=== PATIENT | female | born 1970 | race Caucasian/White ===

== ENCOUNTER 2022-05-12 15:17 | Outpatient (CLI) | payer OTHER, SELFPAY ==
[2022-05-12 17:25] LABS: Carcinoembryonic Antigen 0.8 ng/mL (0.0-3.0)
[2022-05-15 07:36] LABS: CA 19-9 28 U/mL (<34)
== END 2022-05-12 15:18 | disposition home or self-care (01) ==
PROVIDERS: PCP Internal Medicine; Visit Provider Obstetrics & Gynecology
DX: N83.209 Unspecified ovarian cyst, unspecified side (principal)
CPT/HCPCS: 36415; 82378; 86301

== ENCOUNTER 2022-05-13 01:37 | Day surgery (SDC) | payer OTHER, SELFPAY ==
[2022-05-12 17:09] VITALS: BMI 37.6
--- NOTE | 2022-05-12 17:36 | SUR.PREOP ---
Report to the Outpatient Waiting Room, entrance under the green pavilion located off [facility], at time 1130 on date 05/13/2022. OR Time: 1330. Time changes happen often and if your time is changed the preop area will call you the afternoon before. - You and your visitor will be asked to self-screen and do not enter if you have any COVID symptoms. - Only one visitor and NO children visitors are allowed at this time. - The patient visitor is requested to leave or wait in car when not with patient due to restrictions. - A mask is required within the hospital. Patients may have clear liquids (water, carbonated beverages, clear teas, apple juice) until 3 hours (1030) prior to surgery with a maximum of 20 ounces. - No food from midnight until time of surgery - Infants may have breast milk until 4 hours before surgery, infant formula 6 hours prior to surgery. - Children will be allowed to drink immediately following surgery. If applicable, please bring a bottle or sippy cup to assist with drinking. Juice, water, soda, and popsicles are readily available. For infants on formula, please bring formula the day of surgery. Pacifiers are allowed. Take the following medications with a SIP of water the morning of surgery: Tylenol or Tramadol as needed for pain Medications to discontinue per physician N/A Date to take last dose N/A Please no make-up, nail hungarian, hairspray, perfume, deodorant, or body powder the day of surgery. No jewelry (including any body piercings) or valuables the day of surgery, leave them at home. Please take a shower or bath the night before, or the morning of, surgery with an antibacterial soap. Wear comfortable, loose fitting clothing. Children are encouraged to wear pajamas. - Jewelry must be removed prior to entering the operating room. Rings and piercings that are not removed may be cut off. - The hospital will not accept responsibility for valuables. - Please leave all valuables, including medications, at home the day of surgery. If you are going home after surgery, a licensed trailer driver must drive you home. - NO public transportation without another adult. - We recommend that an adult stay with you for 24 hours following discharge. - We also recommend that you do not drive, make important decision, drink alcoholic beverages, or take any drugs that were not prescribed by your health care provider for at least 24 hours after your discharge time. For Pediatric surgeries, we recommend two adults accompany the child home (only one inside the building at this time). Follow any additional instructions given to you from your surgeon. If you or anyone in your household have experienced Covid symptoms in the past week, please notify your surgeon or the nurse liaison at the phone number below for possible testing. Telephone instructions given to ____patient and asked if any additional questions and then verbalized understanding. Patient advised to call surgeon office or pre surgery nurse liaison [phone] if any additional questions.
[2022-05-13] VITALS (14 sets, daily range): BP systolic 102–166; BP diastolic 57–79; PULSE 50–78; RESP 12–18; TEMP 36.4–36.6; O2SAT 92–100
--- NOTE | 2022-05-13 08:22 | PM.IMHP ---
H&P: HPI History of Present Illness Date/Time: 05/13/22 08:22 51-year-old female 2 para 2001 presents for evaluation of right adnexal mass and pain. Was doing well until approximately 1 week ago which again have right lower quadrant pain and presented to the emergency to imaging center at [facility]. Was found have 4-6 cm right adnexal mass which was causing significant amount of pain. She then went to emergency room in [facility] which is where her oncologist is located. Was evaluated in the emergency room and discharged home. Continue with severe pain and presents today for evaluation and treatment. We have discussed the possibility cystectomy and/or oophorectomy. Tumor markers have been ordered but patient is having enough discomfort that she does not desire to wait until they return before proceeding with surgical intervention. She also has a known fibroid uterus and has some pelvic cramping with this as well as urinary incontinence but we have deferred an evaluation and treatment of this until a later time as the adnexal pain is significant enough that she needs surgery sooner for these issue. Chief Complaint: Adnexal mass with pain Review of Systems Review of Systems: All systems reviewed & are unremarkable except as noted in HPI and below PMFSH Past Medical History Medical History Abnormal Pap smear of cervix Breast cancer (09/05/10) right breast cancer Ovarian cyst Surgical History Surgical History History of mastectomy Bilateral mastectomy History of tonsillectomy Hx of breast implants, bilateral silicone after double mastectomy / nipple reconstruction Hx of cholecystectomy Social History Social History Smoking status: Never smoker Alcohol intake: current Drinks per week: 6 Substance use: never Substance use type: does not use Living arrangements: with family Additional living arrangements comments: Additional occupation/education comments: Nurse practioner Gender identity (if verbalized by the patient): Female Sexual Orientation (if Verbalized by the Patient): Straight or Heterosexual Spiritual care concerns: No Meds Home Medications and Allergies Home Medications Medication Instructions Recorded Confirmed Type acetaminophen 500 mg tablet 1,000 mg PO Q6H PRN Pain 09/07/22 09/07/22 History (Tylenol Extra Strength) ketorolac 10 mg tablet 10 mg PO Q6H PRN Pain 05/12/22 05/12/22 History omeprazole 40 mg capsule,delayed 40 mg PO DAILY 05/12/22 05/12/22 History release tramadol 50 mg tablet 50 mg PO Q6H PRN pain #20 tabs 05/12/22 05/12/22 Rx Allergies Allergy/AdvReac Type Severity Reaction Status Date / Time erythromycin base Allergy Intermediate Rash Verified 05/12/22 17:07 Penicillins Allergy Intermediate Rash Verified 05/12/22 17:05 Sulfa (Sulfonamide Allergy Intermediate Itching Unverified 05/12/22 17:05 Antibiotics) latex Allergy Mild Rash Verified 05/12/22 17:05 Exam Const: General: cooperative and healthy appearing Resp: Effort & Inspection: normal respiratory effort Auscultation: clear to auscultation bilaterally Cardio: Rate: regular rate Rhythm: regular rhythm GI: Inspection: normal to inspection Auscultation: normal bowel sounds : External Female Exam: normal external appearance Speculum Exam - Vagina: normal appearance of the vagina Speculum Exam - Cervix: normal appearance of the cervix Bimanual exam- vagina & uterus: enlarged (12 to 14 week size and globular/tender) Assessment and Plan Assessment and plan (1) Adnexal mass: Code(s): N94.89 - Other specified conditions associated with female genital organs and menstrual cycle Status: Acute Assessment and Plan: Proceed with laparoscopic evaluation with ovarian cystectomy. Possible oo
--- NOTE | 2022-05-13 08:27 | WPDHPUPDATE1 ---
History and Physical Update Update Date/Time: 05/13/22 08:27 History and Physical has been reviewed, including an updated exam of the patient. There are NO changes in the patient's condition. Risks, benefits, and alternatives have been discussed and questions answered. Patient agrees to proceed with procedure.
--- NOTE | 2022-05-13 11:03 | WPDANESEPPF ---
Anes - Initial Pre Proc Eval Procedure: Operation Date: 05/13/22 11:30 Proposed Procedures p Laparoscopic Right Ovarian Cystectomy with Possible Right Oophorectomy - Florencio Khalil MD Date/Time: 05/13/22 11:03 Surgeon: Florencio Khalil MD Pre Op Diagnosis: Right Ovarian Cyst Patient Data Age: 51 Gender: F Height: 1.7 m Weight: 109.3 kg Allergies Allergy/AdvReac Type Severity Reaction Status Date / Time erythromycin base Allergy Intermediate Rash Verified 05/13/22 10:58 Penicillins Allergy Intermediate Rash Verified 05/13/22 10:58 Sulfa (Sulfonamide Allergy Intermediate Itching Unverified 05/13/22 10:58 Antibiotics) latex Allergy Mild Rash Verified 05/13/22 10:58 Home Medications Medication Instructions Recorded Confirmed Type acetaminophen 500 mg tablet 1,000 mg PO Q6H PRN Pain 05/12/22 05/13/22 History (Tylenol Extra Strength) ketorolac 10 mg tablet 10 mg PO Q6H PRN Pain 05/12/22 05/13/22 History omeprazole 40 mg capsule,delayed 40 mg PO DAILY 05/12/22 05/13/22 History release tramadol 50 mg tablet 50 mg PO Q6H PRN pain #20 tabs 05/12/22 05/13/22 Rx Patient hx anesthesia problems: post op nausea/vomiting Family hx anesthesia problems: none Results Review: All pre-operative results and documents have been reviewed as part of the pre-operative evaluation. [facility] Past Medical History Medical History Abnormal Pap smear of cervix Breast cancer (09/05/10) right breast cancer Hx of migraines Ovarian cyst Surgical History Surgical History History of mastectomy Bilateral mastectomy History of tonsillectomy Hx of breast implants, bilateral silicone after double mastectomy / nipple reconstruction Hx of cholecystectomy Social History Social History Smoking status: Never smoker Alcohol intake: current Drinks per week: 6 Substance use: never Substance use type: does not use Living arrangements: with family Additional living arrangements comments: Additional occupation/education comments: Nurse practioner Gender identity (if verbalized by the patient): Female Sexual Orientation (if Verbalized by the Patient): Straight or Heterosexual Spiritual care concerns: No Anes - Eval Final PreProcedure Day of Procedure 05/13/22 11:03 Patient weight: obese Heart: regular rate and rhythm Lungs: clear to auscultation Airway: Mallampati scale class II Neurological: alert and oriented Last oral intake: >/= 8 hours ASA classification: III Emergent: no Anesthetic plan: proceed Anesthesia type and monitoring: general ETT and standard monitoring Results Review: All pre-operative results and documents have been reviewed as part of the pre-operative evaluation. Informed Consent: The patient's anesthetic plan and its attendant risks and benefits were discussed with the patient/family/POA. Questions were solicited and answers provided to the satisfaction of the patient/family/POA.
[2022-05-13] MEDS: KETOROLAC 15 MG/ML VIAL (*BKC) IV PUSH (11:08)
[2022-05-13] MEDS: LACTATED RINGERS 1,000 ML 30 ML IV CONT ×2 (11:08→12:54)
[2022-05-13] MEDS: ONDANSETRON INJ 4 MG/2 ML VIAL IV PUSH (13:09)
[2022-05-13] MEDS: fentaNYL CITRATE INJ (*CRX) 100 MCG/2 ML VIAL 25 MCG IV PUSH ×2 (13:18→13:25)
[2022-05-13] MEDS: diphenhydrAMINE HCl INJ 50 MG/ML VIAL 25 MG IV PUSH (13:25)
--- NOTE | 2022-05-13 13:27 | W.PM.PROC2 ---
Procedure Note - Detailed Date of Procedure 05/13/22 Pre-op Diagnosis Right Ovarian Cyst Post-op Diagnosis Same (+ dense adhesions) Procedure Performed 1. Laparoscopy 2. Adhesiolysis 3. Right salpingo oophorectomy Surgeon Florencio Khalil MD Anesthesia General Findings 1. Enlarged bulky uterus filling the entire pelvic cavity 2. Left tube and ovary without any significant abnormalities noted 3. Right ovary multi-cystic densely adhered to the posterior cul-de-sac and right lateral pelvic sidewall. Description of Procedure Patient was prepped and draped in usual sterile manner for this procedure. Cervical instruments were placed for mobility throughout the case. Abdominal trocar sites were then placed under direct visualization and thorough evaluation of the pelvis revealed findings as above. While deflecting the uterus anteriorly the ovary was unable to be removed from the cul-de-sac and at this point using the Harmonic scalpel adhesions were taken down and the ovary ultimately was freed up and no other abnormalities in the surrounding tissue were noted. Harmonic scalp was then used to cauterize the infundibulopelvic ligament and once this was undertaken the ovaries placed into an Endo-Catch bag and removed. 0 Vicryl was used in a [id number] suture for the 10mm meter trocar site fascial incision. 4-0 Monocryl was then used on the other incisions to approximate the skin edges. Patient was then sent to recovery room in stable condition. Of note the right adnexa was densely adhered into the posterior and lateral cul-de-sac and was unable to be removed until the infundibulopelvic ligament had been cauterized and cut to free up base of the ovary at which point the rest of the 0 was able to be sharply and bluntly dissected out of the cul-de-sac. Estimated Blood Loss 50 Drains No Packing No Pathology Yes Complications No immediate complications Condition Stable Disposition PACU [facility] Billing Surgery - Charge Forward: Surgery Billing
[2022-05-13] MEDS: HYDROmorphone HCL INJ (*CRX) 1 MG/ML SYR IV PUSH ×2 (14:00→14:09)
[2022-05-13] MEDS: traMADol HCL (*CRX) 50 MG TABLET PO (15:29)
== END 2022-05-13 17:10 | disposition home or self-care (01) ==
PROVIDERS: PCP Internal Medicine; Visit Provider Obstetrics & Gynecology
PROC: (CPT 49320; principal; 2022-05-13 13:30)
DX: N80.1 Endometriosis of ovary (principal); Z85.3 Personal history of malignant neoplasm of breast; E66.9 Obesity, unspecified; Z68.37 Body mass index [BMI] 37.0-37.9, adult; D25.9 Leiomyoma of uterus, unspecified; R32 Unspecified urinary incontinence
CPT/HCPCS: 58661; 88305; A9270; J1100; J1170; J1200; J1885; J2250; J2405; J2704; J2710; J3010; J7120